=== PATIENT | female | born 1955 | race Caucasian/White ===

== ENCOUNTER 2016-11-16 19:07 | Emergency (ER) | payer OTHER ==
--- NOTE | ~2016-11-16 | CR278 ---
[facility] A Service of [facility] & [facility] RADIOLOGY TEXT RESULTS PATIENT: JUAN IRAHETA LOCATION: SED : 53 UNIT #: [id number] AGE: [address]: FELICIANO PADILLA SEX: F ORDER DR: [id number] [address] [address] [id number] E MR#: [id number] Acc #: [id number] NAME: JUAN IRAHETA. : 1955 SEX: F STUDY DATE/TIME: 11/16/2016 21:52 UNIT: SED ROOM: STUDY DESCRIPTION: CR Wrist 2 View Lt Attending Physician: Feliciano Padilla Ordering Physician: Physician Non-Staff Primary Care Physician: Shannen Lo M.D. MEDICAL IMAGING REPORT This report is preliminary unless electronic signature is present. EXAM Left wrist. HISTORY Left wrist pain since yesterday after fall. Patient has left wrist fracture and reduction has been attempted. FINDINGS AP and lateral post reduction images were obtained. On the lateral view the alignment of the distal radial fracture fragments is better. There is still some impaction present. There is a transverse comminuted fracture through the distal 1 cm of the radius. There is a fracture at the ulnar styloid. The proximal ends are normal. IMPRESSION The alignment of the distal radius fracture has been improved through reduction. There is also an ulnar styloid fracture present. Dictated by... Pedro Morris M.D. THIS IS AN ELECTRONICALLY VERIFIED REPORT Pedro Morris M.D. at 11/17/2016 12:39 PM Kwadwo TD: 11/17/2016 09:22 JOB #: [id number] MEDICAL IMAGING REPORT Page 1 of 1
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
[~2016-11-16 19:07] MED LIST: ALLERCLEAR10 MG PO; ASPIRIN EC81 M1 PO; ATENOLOL PO; CITALOPRAM HBR10 MG PO; CYMBALTA PO; EC-NAPROSYN500 MG PO; FLEXERIL PO; LORATADINE PO; LOVASTATIN20 M1 PO; LUNESTA PO; OSTEOPOROSIS MED; PREMPRO 0.3 MG/1 TAB PO; TENORETIC 50 TA1 TAB PO; UNISOM25 M2 PO; VICODIN 5/500 T1 TAB PO; VITAMIN PO; VOLTAREN75 MG PO; WELLBUTRIN75 M1
[2016-11-16] MEDS ORDERED: CYMBALTA20 M1 (19:18)
[2016-11-16] MEDS ORDERED: VITAMIN D10000 UNIT (19:19)
[2016-11-26] MEDS ORDERED: VITAMIN D350000 UNIT PO (12:28)
[2016-11-26] MEDS ORDERED: LOVASTATIN20 M2 PO (12:29)
[2016-11-26] MEDS ORDERED: WELLBUTRIN SR PO (12:30)
[2016-11-26] MEDS ORDERED: ATENOLOL50 MG PO (12:30)
[2016-11-26] MEDS ORDERED: CELEXA20 MG PO (12:30)
[2016-11-26] MEDS ORDERED: ASPIRIN EC81 M1 PO (12:31)
[2016-11-26] MEDS ORDERED: CLARITIN10 M3 PO (12:31)
[2016-11-26] MEDS ORDERED: MELATONIN10 M1 PO (12:32)
[2016-11-26] MEDS ORDERED: LORTAB 7.5-3251 EACH PO (12:33)
== END 2016-11-16 23:17 | disposition home or self-care (01) ==
LOC: SED 19:07
DX: S52.502A Unspecified fracture of the lower end of left radius, initial encounter for closed fracture (principal); S70.312A Abrasion, left thigh, initial encounter; S70.311A Abrasion, right thigh, initial encounter; V49.00XA Driver injured in collision with unspecified motor vehicles in nontraffic accident, initial encounter; I10 Essential (primary) hypertension; F17.200 Nicotine dependence, unspecified, uncomplicated; Z23 Encounter for immunization
CPT/HCPCS: 25605; 73090; 73100; 73110; 90471; 90715; 96374; 96375; 96376; 99284; J2250; J2270; J2405

== ENCOUNTER → 2016-11-21 | Outpatient (CLI) | payer OTHER ==
[~2016-11-21] MED LIST changes: +ATENOLOL50 MG PO; +CELEXA20 MG PO; +CLARITIN10 M3 PO; +CYMBALTA20 M1; +LORTAB 7.5-3251 EACH PO; +LOVASTATIN20 M2 PO; +MELATONIN10 M1 PO; +VITAMIN D10000 UNIT; +VITAMIN D350000 UNIT PO; +WELLBUTRIN SR PO
--- NOTE | ~2016-11-21 | EKG ---
PATIENT: JUAN IRAHETA UNIT #: [id number] Ventricular Rate: 47 BPM Atrial Rate: 47 BPM P-R Interval: 142 ms QRS Duration: 68 ms Q-T Interval: 468 ms QTC Calculation(Bezet): 414 ms P [place]: -5 degrees Calculated R [place]: 3 degrees Calculated T [place]: 5 degrees Diagnosis Line: Marked sinus bradycardia Diagnosis Line: Nonspecific T wave abnormality Diagnosis Line: Abnormal ECG Diagnosis Line: No previous ECGs available Diagnosis Line: Confirmed by MIKE MORGAN MD ([id number]) on Diagnosis Line: 11/21/2016 4:27:53 PM INTERPRETING MD: ARACELY
== END | disposition home or self-care (01) ==
LOC: CAMB 11:50
DX: Z01.810 Encounter for preprocedural cardiovascular examination (principal)
CPT/HCPCS: 93005

== ENCOUNTER → 2016-11-26 | Day surgery (SDC) | payer OTHER ==
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
--- NOTE | ~2016-11-26 | CR278 ---
[facility] A Service of [facility] RADIOLOGY TEXT RESULTS PATIENT: JUAN IRAHETA LOCATION: [facility] : 54 UNIT #: [id number] AGE: [address]: Bello Chavarria MD SEX: F ORDER DR: [id number] [facility] [address]. [place], [place] [address] [id number] O MR#: [id number] Acc #: [id number] NAME: JUAN IRAHETA : 1955 SEX: F STUDY DATE/TIME: 11/26/2016 15:04 UNIT: [facility] ROOM: STUDY DESCRIPTION: CR Wrist 2 View Lt Attending Physician: Bello Chavarria M.D. Referring Physician: Bello Chavarria M.D. Ordering Physician: Bello Chavarria M.D. Primary Care Physician: Shannen Lo M.D. MEDICAL IMAGING REPORT This report is preliminary unless electronic signature is present EXAMINATION Left wrist intraoperative fluoroscopy for 1 hour. DATE 11/26/2016 HISTORY Left wrist. ORIF. COMPARISON Left wrist radiograph, 11/16/2016. FINDINGS Eleven spot intraoperative fluoroscopic images were obtained during open reduction internal fixation of the distal left radius by Dr. Chavarria. Fluoroscopy time 1 minute, 56 seconds was documented by the technologist. Plate and screw fixation changes of the comminuted distal radial metaphyseal fracture, and improved alignment for healing purposes. Minimally displaced fracture of the ulnar styloid tip redemonstrated. Radiocarpal alignment appears satisfactory. Please refer to the operative report for additional findings and recommendations. Dictated by... Oly See M.D. THIS IS AN ELECTRONICALLY VERIFIED REPORT Oly See M.D. at 11/27/2016 8:38 AM MICKIE/adri TD: 11/26/2016 18:23 JOB #: [id number] [facility] A Service of [facility] RADIOLOGY TEXT RESULTS PATIENT: JUAN IRAHETA LOCATION: [facility] #: [id number] : 53 UNIT #: [id number] AGE: [address]: Bello Chavarria MD SEX: F ORDER DR: MEDICAL IMAGING REPORT Page 1 of 1 COPY
== END | disposition home or self-care (01) ==
LOC: CSUR 12:03
DX: S52.572A Other intraarticular fracture of lower end of left radius, initial encounter for closed fracture (principal); M25.332 Other instability, left wrist; K21.9 Gastro-esophageal reflux disease without esophagitis; I10 Essential (primary) hypertension; E78.00 Pure hypercholesterolemia, unspecified; M81.0 Age-related osteoporosis without current pathological fracture; F41.9 Anxiety disorder, unspecified; E66.9 Obesity, unspecified; G89.29 Other chronic pain; E78.5 Hyperlipidemia, unspecified; Z68.28 Body mass index [BMI] 28.0-28.9, adult; Z87.891 Personal history of nicotine dependence; Z79.899 Other long term (current) drug therapy; Z90.49 Acquired absence of other specified parts of digestive tract; Z98.51 Tubal ligation status; Z98.890 Other specified postprocedural states; V29.9XXA Motorcycle rider (driver) (passenger) injured in unspecified traffic accident, initial encounter
CPT/HCPCS: 73100; 76001; C1713; J0690; J2250; J2270; J2370; J2405; J2765; J3010